=== PATIENT | male | born 1970 | race Caucasian/White ===

== ENCOUNTER 2019-01-20 10:37 | Inpatient (IN) ==
[2019-01-20] MEDS: *HR* OxyCODONE/APAP 5/325 TABLET PO PRN ×2 (14:31→20:11)
[2019-01-20] MEDS: Nicotine 21 MG PATCH.TD24 TD SCH (16:09)
[2019-01-21] MEDS: *HR* OxyCODONE/APAP 5/325 TABLET PO PRN ×6 (00:11→20:18)
[2019-01-21] MEDS: Nicotine 21 MG PATCH.TD24 TD SCH (07:59)
--- NOTE | 2019-01-21 12:44 | Cardiothoracic H&P ---
Date of Encounter: 01/21/19 Time of Encounter: 12:42 Assessment and Plan (1) Bullous emphysema with collapse Current Visit: Yes Status: Acute The assessment and plan as outlined above was discussed with the patient and/or family members who expressed understanding and agreement. All questions were answered. continue chest tube to suction .. patient will need surgery (2) COPD (chronic obstructive pulmonary disease) with emphysema Current Visit: Yes Status: Chronic The assessment and plan as outlined above was discussed with the patient and/or family members who expressed understanding and agreement. All questions were answered. i have recommended bronchodilators upon discharge Qualifiers: Emphysema type: panlobular Qualified Code(s): J43.1 - Panlobular emphysema History of Present Illness Chief complaint: Shortness of breath HPI: Mr. Hardy is a 48 year old male who presented to an outside facility with approximately 4 week history of atypical left sided chest pain associated with shortness of breath and dyspnea on exertion that has partially resolved since having a chest tube placed yesterday by my colleague at [facility]. Chest tube was placed at that time for near complete collapse of the left lung. Since his admission some of the symptoms have improved with tube placement. CT scan of the chest demonstrates bullous emphysema changes with no evidence of cancers. Past Med Surg Social Fam HX - Past Medical History Additional medical history: double Psychiatric history: depression - Past Surgical History Additional surgical history: double hernia repair, right chest tube for trauma - Social History Smoking Status: Current every day smoker Packs per day: 2 Smokeless Tobacco Status: No Alcohol use: rarely Drug use: marijuana - Family History Father Living Status: Still Living Hx Family Cardiac Disorders: Yes Mother Living Status: Still Living Hx Family Cardiac Disorders: No Hx Family Respiratory Disorders: No Hx Family Cancer: No Hx Family GI Disorders: No Hx Family Genitourinary Disorders: No Hx Family Endocrine Disorder: No Hx Family Musculoskeletal Disorders: No Hx Family Neuromuscular Disorders: No Hx Family Neurologic Disorders: No Hx Family HEENT Disorders: No Hx Family Autoimmune Disorders: No Hx Family Reproductive Disorders: No Hx Family Psychosocial Disorders: No Hx Family Medical Disorders: No - Additional Family History Additional family history: cad, htn. no cancers Medications and Allergies No Known Home Drugs 01/20/19 [History] Allergy/AdvReac Type Severity Reaction Status Date / Time No Known Allergies Allergy Verified 09/15/19 18:07 All Systems Review: The remainder of the systems were reviewed and are negative - Constitutional Constitutional: fatigue - Cardiovascular Cardiovascular: dyspnea at rest, dyspnea on exertion - Respiratory Respiratory: cough, wheezing, chest wall pain - Psychiatric Psychiatric: anxiety Physical Examination Vital Signs, Last 4 Hours Pulse Resp BP Pulse Ox 01/21/19 11:40 57 18 131/82 96 General: Conversant, No Apparent Distress, Well developed, Well nourished, Other (anxiety) HEENT: Atraumatic, Normocephaly, Trachea midline Neck: No JVD, Normal carotid pulses Cardiac: Reg Rate and Rhythm, Normal S1 and S2, No Murmur Lungs: Other (air leak from chest tube ) Neuro: Alert and responsive, No focal deficits noted, Cranial nerves intact, Motor nerves intact, Sensory nerves intact Vascular: Normal capillary refill Abdomen: Soft, Non-tender Musculoskeletal: Other (5/5 mm strength. full range of motion ) Extremities: No Clubbing, No Cyanosis, No Edema, Normal Pulses Results - Imaging Chest Xray: image reviewed
[2019-01-21] MEDS ORDERED: Ondansetron 4 MG/2 ML VIAL IVP PRN (12:47)
[2019-01-21] MEDS: Ipratropium/Albuterol Neb 3 ML IH SCH ×2 (15:34→19:54)
[2019-01-21] MEDS: Sennosides/Docusate Sodium TABLET PO SCH (20:19)
[2019-01-22] MEDS: Ipratropium/Albuterol Neb 3 ML IH SCH ×7 (00:06→23:58)
[2019-01-22] MEDS: Sennosides/Docusate Sodium TABLET PO SCH ×2 (07:26→20:02)
[2019-01-22] MEDS: *HR* OxyCODONE/APAP 5/325 TABLET PO PRN ×3 (07:26→19:42)
[2019-01-22] MEDS: Nicotine 21 MG PATCH.TD24 TD SCH (07:26)
[2019-01-22] MEDS ORDERED: CeFAZolin Syr 2,000MG/20 ML 2,000 MG/20 ML SYRINGE IVPB ONE (11:59)
--- NOTE | 2019-01-22 12:01 | Cardiothoracic Progress Note ---
Date of Encounter: 01/22/19 Time of Encounter: 12:00 - Assessment and plan (1) Bullous emphysema with collapse Current Visit: Yes Status: Acute The assessment and plan as outlined above was discussed with the patient and/or family members who expressed understanding and agreement. All questions were answered. continue chest tube to suction .. preop orders written after patient has consented for surgery (2) COPD (chronic obstructive pulmonary disease) with emphysema Current Visit: Yes Status: Chronic The assessment and plan as outlined above was discussed with the patient and/or family members who expressed understanding and agreement. All questions were answered. i have recommended bronchodilators upon discharge Qualifiers: Emphysema type: panlobular Qualified Code(s): J43.1 - Panlobular emphysema Vital Signs, Last 4 Hours Temp Pulse Resp BP Pulse Ox 01/22/19 11:55 97.3 F L 75 20 124/92 94 01/22/19 11:22 16 99 01/22/19 11:10 16 97 Oxgyen Flow Rate Oxygen Flow Rate (LPM) 2 Clinical Data, last 8 Hours Output, Chest Tube Drainage 9 Amount [Left Anterior Chest #1 ] Output, Chest Tube Drainage 0 Amount [Left Anterior Chest #1 ] Weight 01/20/19 01/21/19 01/22/19 23:59 23:59 23:59 Weight 66.678 kg 68.4 kg - Physical Examination General: Conversant, Well developed, Well nourished HEENT: Atraumatic, Normocephaly Cardiac: Reg Rate and Rhythm, Normal S1 and S2 Incision: No signs of infection, Dry/intact dressing Chest tubes: Minimal drainage, Air leak Lungs: Other (cta on the right and decreased on the left. ) Neuro: Alert and responsive, No focal deficits noted, Cranial nerves intact, Motor nerves intact Abdomen: Soft, Non-tender Extremities: No Edema, Normal Pulses - Imaging Chest Xray: image reviewed Consult Discharge Plan - Plan Referrals: Evangelist Gomez DO [Non-Partnered Physician] - 02/01/19 10:00 am Jose L Shore MD [Partnered Physician] -
[2019-01-22] MEDS: Ketorolac 15 MG/ML VIAL IVP SCH ×2 (12:31→17:05)
[2019-01-23] MEDS: Ketorolac 15 MG/ML VIAL IVP SCH ×5 (00:16→23:41)
[2019-01-23] MEDS: *HR* OxyCODONE/APAP 5/325 TABLET PO PRN ×5 (00:52→23:42)
[2019-01-23] MEDS: Ipratropium/Albuterol Neb 3 ML IH SCH ×6 (04:20→23:54)
[2019-01-23] MEDS ORDERED: CeFAZolin Syr 2,000MG/20 ML 2,000 MG/20 ML SYRINGE IVPB ONE (08:00)
[2019-01-23] MEDS ORDERED: Ondansetron 4 MG/2 ML VIAL ONE ×2 (08:27→10:21)
[2019-01-23] MEDS ORDERED: *HR* FentaNYL (PF) 100 MCG/2 ML VIAL ONE ×2 (08:49→10:30)
[2019-01-23] MEDS ORDERED: *HR* Midazolam HCl 2 MG/2 ML VIAL ONE (08:49)
[2019-01-23] MEDS ORDERED: *HR* Propofol 200 MG/20 ML VIAL IVP ONE (08:50)
--- NOTE | 2019-01-23 08:50 | Anesthesia Evaluation PreOp ---
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 History: Denies Any Significant HX Other Medical History: Other (depression) Anesthesia History: No Prior Anesthetic Complications, Past Anesthesia Alcohol Use: rarely Drug use: marijuana Medications and Allergies No Known Home Drugs 01/20/19 [History] Allergy/AdvReac Type Severity Reaction Status Date / Time No Known Allergies Allergy Verified 01/20/19 18:07 - Meds/Allergy Pre-op Review Medications Reviewed: Yes Allergies Reviewed: Yes Beta Blockers on Current Med List: No Anesthesia Exam Vital Signs/O2 Sat, Most Current Temp Pulse Resp BP Pulse Ox 97.7 F 70 18 106/55 95 01/23/19 06:52 01/23/19 06:52 01/23/19 07:20 01/23/19 06:52 01/23/19 07:20 Height: 5'9''/1.75m Weight: 150 lbs/68.4 kg NPO (# of Hours): 8 Pain Scale: 7 Pain Scale Used: Numeric (1 - 10) - HEENT Pupil (Motor): EOMI Mallampati: II Teeth: Normal Oral Opening: Greater than 3 - HOSE CEMENTER LOC: Oriented HOSE CEMENTER Motor: Normal RUE, Normal LUE, Normal RLE, Normal LLE, Normal Face HOSE CEMENTER Sensory: Normal: RUE, LUE, RLE, LLE, Face - Cardiac Rhythm: Regular Murmur: None - Pulmonary Breath Sounds: bilateral Clear (decreased BS left) Respiratory Effort: Symmetrical Anesthesia Assess/Plan ASA Score: 2 Level of consciousness: Cooperative, Oriented, Tranquil Anesthetic Plan: General Monitoring Plan: Standard Monitors Recovery Plan: PACU
[2019-01-23] MEDS ORDERED: Lidocaine -MPF 2% 2 ML VIAL ONE (08:51)
[2019-01-23] MEDS ORDERED: *HR* Succinylcholine 200 MG/10 ML VIAL IVP ONE (08:52)
[2019-01-23] MEDS ORDERED: *HR* Rocuronium Bromide 50 MG/5 ML VIAL ONE (08:52)
[2019-01-23] MEDS ORDERED: *HR* OxyCODONE Immed Rel 5 MG TABLET PO PRN (09:09)
[2019-01-23] MEDS ORDERED: Lidocaine -MPF 4% 5 ML AMPUL ONE (09:20)
[2019-01-23] MEDS ORDERED: CATH TIP IX ONE (10:00)
[2019-01-23] MEDS ORDERED: SODIUM CHLORIDE IX ONE (10:00)
[2019-01-23] MEDS ORDERED: DOXYCYCLINE IX ONE (10:00)
[2019-01-23] MEDS ORDERED: *HR* PHENYLEPHRINE 1,000 MCG/10 ML SYRINGE IVP ONE (10:07)
[2019-01-23] MEDS ORDERED: EPHEDrine 50 MG/ML VIAL ONE (10:09)
[2019-01-23] MEDS ORDERED: Dexamethasone 4 MG/ML VIAL ONE (10:21)
[2019-01-23] MEDS ORDERED: *HR* HYDROMORPHONE 2 MG/ML VIAL ONE (11:02)
--- NOTE | 2019-01-23 11:06 | Operative Note ---
Date of procedure: 01/23/19 Pre-op diagnosis: bullous emphysema with collapse Post-op diagnosis: same Procedure: bronchoscopy left thoracoscopy wedge resection upper lobe and mechanical/chemical pleurodesis Anesthesia: GETA Local Anesthetics: 0.5% Sensorcaine HCL SubQ (cc) Surgeon: Jose L Shore Was there an food trades assistants present: No Estimated blood loss (cc): 5 Specimen: wedge left upper lobe Condition: stable Disposition: PACU Procedure in Detail: Patient was brought to the operating room and placed on the operating table in the supine position. Perioperative antibiotics on board and DVT prophylaxis onboard the patient underwent anesthesia. Bronchoscopy was performed as the patient had had trauma to his chest followed by chest pain hemopneumothorax. There is no disruption of the main tracheobronchial tree or lobar bronchi. Patient was then placed on the operating table in the right lateral decubitus position with care to pad all pressure points chest tube was removed from the outside facility after the trauma. Patient was prepped and draped in the usual sterile fashion thoracoscopy ports were placed scar tissue at the apex was taken down with sharp dissection this revealed a cluster bullous emphysema blebs and this was resected using the endothoracic reinforce stapler. Hemostasis was excellent paravertebral nerve blocks were performed a mechanical pleurodesis was performed and then a 800 mg doxycycline chemical pleurodesis performed. 28- Nepali chest tube was placed through the most anterior thoracoscopy incision and secured into place with a #2 Ethibond suture. All incisions were closed in layers of 0 Vicryl and 4-0 Monocryl subcuticular stitches with dressings consisting of Steri-Strips and sterile gauze. During this time the chest tube was on waterseal with no active air leaks appreciated during ventilation. Doxy cycline was added through the chest tube. Chest tube was clamped the patient was extubated and taken to the recovery room.
[2019-01-23] MEDS: *HR* HYDROmorphone (PF) 1 MG/ML SYRINGE IVP PRN ×4 (11:17→11:55)
[2019-01-23] MEDS ORDERED: *HR* Midazolam HCl 5 MG/5 ML VIAL IVP ONE (11:23)
[2019-01-23] MEDS: *HR* Midazolam HCl 2 MG/2 ML VIAL IVP PRN ×2 (11:24→11:34)
[2019-01-23] MEDS ORDERED: *HR* Labetalol 20 MG/4 ML SYRINGE IVP ONE (11:50)
[2019-01-23] MEDS: *HR* Labetalol 20 MG/4 ML SYRINGE IVP PRN ×4 (11:50→12:10)
[2019-01-23] MEDS ORDERED: Talc (sterile) 4 GM, 0.9 % Sodium Chloride 50 ML, Syringe CATH TIP 1 EACH IX ONE ×2 (12:30)
--- NOTE | 2019-01-23 12:39 | Anesthesia Evaluation Post Op ---
Date of Encounter: 01/23/19 Time of Encounter: 12:38 - Vital Signs Vital Signs: Vital Signs/O2 Sat, Most Current Temp Pulse Resp BP Pulse Ox 97.8 F 78 12 142/103 93 01/23/19 12:06 01/23/19 12:26 01/23/19 12:26 01/23/19 12:26 01/23/19 12:26 - Lungs Lungs: Clear Ascult./Percussion - Airway Airway: Non-obstructed - Cardiovascular Regular Rate - Mental Status Mental Status: Asleep with brisk response to light stimulation - Pain Pain Scale used: Unable to assess - Nausea Vomiting Nausea Vomiting: Not Present - Hydration Hydration: Ice chips, Has not voided - Discharge PostOp Status: Transfer Patient to floor
[2019-01-23] MEDS ORDERED: Ondansetron 4 MG/2 ML VIAL IVP PRN (12:55)
[2019-01-23] MEDS: 0.9 % Sodium Chloride 1,000 ML IVC SCH (13:30)
[2019-01-23] MEDS: Gabapentin 300 MG CAPSULE PO SCH ×2 (14:49→19:28)
[2019-01-23] MEDS: Sennosides/Docusate Sodium TABLET PO SCH (19:27)
[2019-01-24] MEDS: 0.9 % Sodium Chloride 1,000 ML IVC SCH (02:28)
[2019-01-24] MEDS: Ipratropium/Albuterol Neb 3 ML IH SCH ×6 (03:54→23:12)
[2019-01-24] MEDS: *HR* OxyCODONE/APAP 5/325 TABLET PO PRN ×4 (04:13→20:01)
[2019-01-24] MEDS: Ketorolac 15 MG/ML VIAL IVP SCH ×4 (06:04→23:39)
[2019-01-24] MEDS: Gabapentin 300 MG CAPSULE PO SCH ×3 (08:32→20:01)
[2019-01-24] MEDS: Nicotine 21 MG PATCH.TD24 TD SCH (08:32)
[2019-01-24] MEDS: Sennosides/Docusate Sodium TABLET PO SCH ×2 (08:32→20:02)
[2019-01-24 10:39] LABS: BUN/Creatinine Ratio 15 (6-26); Blood Urea Nitrogen 18 mg/dL (6-20); Calcium 9.1 mg/dL (8.6-10.3); Carbon Dioxide 26 mEq/L (23-29); Chloride 104 mEq/L (98-107); Glucose 117 mg/dL (70-105); Osmolality,Calculated 289 (280-300); Potassium 5.5 mEq/L (3.5-5.1); Sodium 138 mEq/L (136-145); eGFR For African Americans > 60 (> 60); eGFR For Non-African Americans > 60 (> 60)
--- NOTE | 2019-01-24 11:50 | Cardiothoracic Progress Note ---
Date of Encounter: 01/24/19 Time of Encounter: 11:48 - Assessment and plan (1) Bullous emphysema with collapse Current Visit: Yes Status: Acute The assessment and plan as outlined above was discussed with the patient and/or family members who expressed understanding and agreement. All questions were answered. clamp chest tube tonight. stop ivf (2) COPD (chronic obstructive pulmonary disease) with emphysema Current Visit: Yes Status: Chronic The assessment and plan as outlined above was discussed with the patient and/or family members who expressed understanding and agreement. All questions were answered. i have recommended bronchodilators upon discharge Qualifiers: Emphysema type: panlobular Qualified Code(s): J43.1 - Panlobular emphysema Vital Signs, Last 4 Hours Temp Pulse Resp BP Pulse Ox 01/24/19 11:39 16 94 01/24/19 11:14 92 18 92 01/24/19 10:51 98.3 F 82 24 125/80 95 01/24/19 09:26 18 91 01/24/19 07:52 16 97 Oxgyen Flow Rate Oxygen Flow Rate (LPM) 2 Clinical Data, last 8 Hours Output, Chest Tube Drainage 8 Amount [Left Anterior Chest #1 ] Output, Chest Tube Drainage 18 Amount [Left Anterior Chest #1 ] Output, Chest Tube Drainage 75 Amount [Left Anterior Chest #1 ] Output, Urine Amount 350 Weight 01/22/19 01/23/19 01/24/19 23:59 23:59 23:59 Weight 66.4 kg - Physical Examination General: Conversant, No Apparent Distress, Well developed, Well nourished HEENT: Atraumatic, Normocephaly Cardiac: Reg Rate and Rhythm, Normal S1 and S2 Incision: No signs of infection, Dry/intact dressing Chest tubes: Minimal drainage Lungs: Normal Breath Sounds Neuro: Alert and responsive, No focal deficits noted, Cranial nerves intact, Motor nerves intact - Labs 01/24/19 10:03 Lab Results, Last 24 hours 01/24/19 10:03 Sodium 138 Potassium 5.5 H Chloride 104 Carbon Dioxide 26 BUN 18 Creatinine 1.18 Glucose 117 H Calcium 9.1 - Imaging Chest Xray: image reviewed Consult Discharge Plan - Plan Referrals: Evangelist Gomez DO [Non-Partnered Physician] - 02/01/19 10:00 am Jose L Shore MD [Partnered Physician] -
[2019-01-25] MEDS: Ipratropium/Albuterol Neb 3 ML IH SCH ×3 (03:54→11:24)
[2019-01-25] MEDS: *HR* OxyCODONE/APAP 5/325 TABLET PO PRN (03:58)
[2019-01-25] MEDS: Ketorolac 15 MG/ML VIAL IVP SCH (05:05)
[2019-01-25 07:41] VITALS: BP 132/90
[2019-01-25] MEDS: Sennosides/Docusate Sodium TABLET PO SCH (08:28)
[2019-01-25] MEDS: Gabapentin 300 MG CAPSULE PO SCH (08:28)
[2019-01-25] MEDS: Nicotine 21 MG PATCH.TD24 TD SCH (08:29)
--- NOTE | 2019-01-25 10:34 | Discharge Summary ---
Date of Encounter: 01/25/19 Time of Encounter: 10:31 - Discharge Diagnosis (1) Bullous emphysema with collapse Priority: Primary Status: Acute (2) COPD (chronic obstructive pulmonary disease) with emphysema Priority: Secondary Status: Chronic Qualifiers: Emphysema type: panlobular Qualified Code(s): J43.1 - Panlobular emphysema - Hospital Course Hospital course: Mr. Hardy is a 48 year old male - Time Spent with Patient Total time spent providing and/or coordinating discharge services: - Discharge Medications Prescriptions: New Gabapentin [Neurontin] 300 mg PO TID capsule Home Medications: Gabapentin [Neurontin] 300 mg PO TID capsule 01/25/19 [Rx] Allergies/Adverse Reactions: Allergy/AdvReac Type Severity Reaction Status Date / Time No Known Allergies Allergy Verified 01/20/19 18:07 Date of admission: 01/20/19 13:23 Primary care physician: PCP NONE Consults: 01/23/19 08:18 Consult to Nurse Navigator [CONS] Routine Comment: COPD Procedure(s) Performed: bronchoscopy, left thoracoscopy wedge resection and pleurodesis Discharging clinician: Jose L Shore (t) Anticipated date of discharge: 01/25/19 Physical Examination Vital Signs, Last 4 Hours Temp Pulse Resp BP Pulse Ox 01/25/19 08:45 97.7 F 92 18 132/90 98 01/25/19 08:17 18 95 01/25/19 07:39 97.7 F 92 18 132/90 98 General: Conversant, No Apparent Distress, Well developed, Well nourished HEENT: Atraumatic, Normocephaly, Trachea midline Cardiac: Reg Rate and Rhythm, Normal S1 and S2 Lungs: Normal Breath Sounds Neuro: Alert and responsive, No focal deficits noted, Cranial nerves intact, Motor nerves intact Abdomen: Soft, Non-tender - Patient Status Disposition: Home, Self-Care Condition: Good Functional capacity at discharge: independent ambulation Overall status at discharge: patient is back to baseline - Discharge Instructions Instructions: Chronic Obstructive Pulmonary Disease (DC) Follow Up With: Evangelist Gomez DO [Non-Partnered Physician] - 02/01/19 10:00 am Jose L Shore MD [Partnered Physician] - - Diet and Activity Activity: other (no lifting more than 20 pounds for 1 month ) Diet: advance to your usual diet Additional instructions: no driving if taking pain medications. no airline travel for 1 month. remove gauze and change as needed on monday
== END 2019-01-25 12:29 | disposition home or self-care (01) | DRG 121 ==
LOC: 2NNU 13:23
PROVIDERS: ADMIT Thoracic Surgery (Cardiothoracic Vascular Surgery); ATTEND Thoracic Surgery (Cardiothoracic Vascular Surgery)